=== PATIENT | female | born 1940 | race Caucasian/White ===

== ENCOUNTER → 2016-11-24 | Outpatient (CLI) | payer MEDICARE ==
[~2016-11-24] MED LIST: /ESOM40CA; BENZ100C5 PO; COUM7.5T PO; CYAN25TA PO; HYDR25TA6; LISI20TA PO; LISI20TA5; NEXI1CAP4 PO; PERCOCET PO; PRAV20TA2 PO; PRAVASTATIN; PRAVASTATIN PO; PREMPRO2.5 PO; TYLE650T30 PO; VICO5TAB; VITA100037 PO; VITMTA PO
--- NOTE | 2016-11-24 19:54 | REPMRS ---
Patient History The patient states she has not had a clinical breast exam in over a year. Patient is postmenopausal. Family history of ovarian cancer in mother at age 57 and ovarian cancer in 2 maternal aunts under age 50. Digital Woman Screen Mammo: November 24, 2016 - Exam #: [id number] Bilateral CC and MLO view(s) were taken. Technologist: Octavia Trevizo, Technologist Prior study comparison: June 04, 2014, digital woman screen mammo performed at [facility]. April 19, 2013, digital woman screen mammo performed at [facility]. February 17, 2012, digital woman screen mammo performed at [facility]. FINDINGS: There are scattered fibroglandular densities. There has been no change in the appearance of the mammogram from the prior studies. There is a mild amount of scattered fibroglandular density which is fairly symmetric. There is no interval development of dominant mass, architectural distortion, or clustered microcalcification suggestive of malignancy. ASSESSMENT: BI-RADS/ACR category 1 mammogram. Negative. Recommendation Routine screening mammogram in 1 year (for women over age 40). This mammogram was interpreted with the aid of an FDA-approved computer-aided dectection system. Electronically Signed By: Javier Gatica MD 11/24/161952
--- NOTE | 2016-11-25 10:29 | DEXA ---
AP SPINE L1 - L4 1.334 1.1 2.6 LT FEMUR TOTAL 0.945 -0.5 1.1 RT FEMUR TOTAL 0.922 -0.7 1.0 TOTAL BODY TOTAL OTHER DUAL FEMUR FRAX* ASSESSMENT Risk factors: Secondary osteoporosis (premature menopause). 10 year probability of fracture Major osteoporotic fracture 12.0 % Hip fracture 2.6 % COMMENTS: Normal bone densitometry of the spine. There is low bone density of the hips. FOLLOW-UP: Recommendation for the next bone density exam: 2 years. RUSS
== END ==
LOC: M WHC 10:57
PROVIDERS: ATTEND Nurse Practitioner Adult Health
DX: Z12.31 Encounter for screening mammogram for malignant neoplasm of breast (principal); M85.9 Disorder of bone density and structure, unspecified
CPT/HCPCS: 77080; G0202

== ENCOUNTER 2017-03-27 15:59 | Emergency (ER) | payer MEDICARE ==
[~2017-03-27] VITALS: Ht 157.5 cm; Wt 71.6 kg
[~2017-03-27 15:59] MED LIST changes: -VITA100037 PO; +VITA100067 PO
[2017-03-27 16:29] LABS: BASO % 0.5 % (0.0-1.0); EOS # 0.3 K/mm3 (0.0-0.50); EOS % 3.3 % (0.0-3.0); LARGE UNSTAINED CELL # 0.1 K/mm3 (0.0-0.4); LARGE UNSTAINED CELL % 0.6 % (0.0-4.0); LYMPH # 1.2 K/mm3 (1.5-4.5); LYMPH % 11.3 % (24.0-44.0); MEAN CORPUSCULAR HEMOGLOBIN 31.5 pg (27.0-33.0); MEAN CORPUSCULAR HGB CONC 33.2 g/dl (32.0-36.5); MONO # 0.3 K/mm3 (0.0-0.8); MONO % 2.6 % (0.0-5.0); NEUTROPHILS % 81.8 % (36.0-66.0); PLATELET COUNT, AUTOMATED 341 k/mm3 (150-450); RED CELL DISTRIBUTION WIDTH 14.9 % (11.5-14.5); WHITE BLOOD COUNT 9.7 K/mm3 (4.0-10.0)
[2017-03-27 16:42] LABS: INR 1.52
[2017-03-27 16:50] LABS: ALBUMIN 2.7 GM/DL (3.2-5.2); ALBUMIN/GLOBULIN RATIO 0.69 (1.00-1.93); ALKALINE PHOSPHATASE 853 U/L (45-117); ALT/SGPT 231 U/L (12-78); ANION GAP 12 MEQ/L (8-16); AST/SGOT 318 U/L (15-37); BILIRUBIN,DIRECT 15.6 MG/DL (0.0-0.2); BLOOD UREA NITROGEN 10 MG/DL (7-18); CALCIUM LEVEL 9.7 MG/DL (8.8-10.2); CARBON DIOXIDE LEVEL 26 MEQ/L (21-32); CHLORIDE LEVEL 97 MEQ/L (98-107); CREATININE FOR GFR 0.61 MG/DL (0.55-1.02); GLOMERULAR FILTRATION RATE > 60.0 (>39); GLUCOSE, FASTING 103 MG/DL (83-110); SODIUM LEVEL 135 MEQ/L (136-145); TOTAL PROTEIN 6.6 GM/DL (6.4-8.2)
[2017-03-27 16:53] LABS: BILIRUBIN,TOTAL 21.3 MG/DL (0.2-1.0)
[2017-03-27] MEDS ORDERED: ISOVUE-370 76% 100ML VIAL (Q9967) As Ordered ONE (18:12)
--- NOTE | 2017-03-27 18:14 | ECGEPIP ---
Stationary ECG Study [facility] - ED Test Date: 2017-03-27 Pat Name: ZOHRA NAYAK Department: Room: - Gender: F [place] Tonger: seb : 1940 Requested By: ASHLEY ROBIN Order Number: [id number] Reading MD: Justin Schumacher Measurements Intervals Drift Rate: 82 P: 80 LA: 152 QRS: -2 QRSD: 89 T: 1 QT: 392 QTc: 459 Interpretive Statements SINUS RHYTHM WITH OCCASIONAL VENTRICULAR PREMATURE COMPLEXES WITH OCCASIONAL SUPRAVENTRICULAR PREMATURE COMPLEXES NSTTW ABNORMALITIES SIMILAR TO 07/19/15 Electronically Signed On 03-27-2017 18:14:39 EDT by Justin Schumacher
--- NOTE | 2017-03-27 19:00 | REPUSA ---
CLINICAL HISTORY: Rule out obstructive CBD. TECHNIQUE: Realtime sonographic images were obtained in multiple projections. COMMENTS: The liver is heterogeneous without evidence of mass or defect. There is intra and extrahepatic bilia ry ductal dilatation. The common bile duct [id number] mm. The gallbladder is distended containing a small amount of sludge. The gallbladder wall thickness is 2 mm. Negative sonographic Gonzalez's sign. There is no abdominal ascites. The pancreas is not well visualized due to bowel gas. The pancreas head contains a hyperechoic mass area measuring 4.3 x 3.6 x 3.7 cm. The right kidney measures 9.1 x 4.9 x 4.2 cm, free of hydronephro sis. No free fluid is seen. IMPRESSION: 1. Heterogeneous liver. 2. Distended gallbladder containing small amount of sludge. 3. There is intra and extrahepatic biliary ductal dilatation. 4. The pancreas head contains a hyperechoic mass area measuring 4.3 x 3.6 x 3.7 cm.
[2017-03-27 19:26] LABS: METHADONE URINE NEGATIVE (NEGATIVE)
[2017-03-27] MEDS ORDERED: cefTRIAXone SOD 1 GM in D5W MINI-BAG PLUS 50 ML IV ONE (19:30)
--- NOTE | 2017-03-27 19:50 | REPUSA ---
CLINICAL HISTORY: Pancreatic mass. COMPARISON: Correlation is made with abdominal ultrasound from the same date. TECHNIQUE: Multiple axial, coronal, sagittal CT images were obtained through the abdomen after admini stration of intravenous contrast material. Oral contrast was not administered. FINDINGS: The liver is enlarged measuring 18.5 cm. No definite evidence of hepatic mass. There is severe intr a- and extra hepatic biliary duct dilatation present. The common bile duct measures up to 18 mm. Th ere are multiple calcified splenic granulomata present. The spleen is normal in size. The gallblad lauren is moderately distended. Multiple small calcified stones are present in the dependent portion of the gallbladder. There is a 3.5 x 2.5 cm hyperdense mass noted occupying a portion of the pancreati c head and uncinate prcess producing obstruction. There is no evidence of adrenal mass. Both kidneys demonstrate prompt and equal nephrograms. The ki dneys are normal in size, shape and configuration. There is no evidence of renal mass. There is no hydroureter or hydronephrosis. There is no evidence of abdominal ascites or lymphadenopathy. The uterus and ovaries appear to be only partially seen. The pelvis is not fully visualized. There is large ventral abdominal hernia containing non-obstructed loops of small and large bowel. Th e hernia neck measures approximately 8 cm. Scattered findings of diverticulosis are seen. There is no evidence of appendicitis. There is no bowel wall thickening. There is an anastomosis not ed in the rectosigmoid with no evidence for bowel obstruction. Images of the lung bases show no evidence of pleural or parenchymal mass. There are no pleural effus ions. IMPRESSION: 1. The liver is enlarged measuring 18.5 cm. No definite evidence of hepatic mass. There is severe intra- and extra hepatic biliary duct dilatation present. 2. 3.5 x 2.5 cm hyperdense mass noted occupying a portion of the pancreatic head and uncinate prcess producing obstruction. 3. The gallbladder is moderately distended. Multiple small calcified stones are present in the depe ndent portion of the gallbladder. 4. Large ventral abdominal hernia containing non-obstructed loops of small and large bowel. Thank you for your kind referral of this patient. We appreciate the opportunity to participate in thi s patient's care.
[2017-03-27 20:22] VITALS: BP 143/67
--- NOTE | 2017-03-28 06:43 | REP ---
AP PORTABLE CHEST: 03/27/2017. Clinical history: Syncope, near-syncope. Comparison: 12/02/2014, 01/20/2014 chest x-ray. CT 07/19/2015. Findings: Slight elevation right diaphragm again seen. No definite effusion, infiltrate, atelectasis or mass. The heart, mediastinal and hilar contours are normal. Some slightly hyperdense nodules or granulomatous nodes at the right hilum as on CT. The aorta is mildly tortuous but normal for age. Airway intact. No cardiomegaly or edema. Impression: 1. No acute cardiopulmonary change. Stable chest. 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 Signed by Raad Tran MD 03/28/2017 07:56 A
== END 2017-03-27 20:28 | disposition short-term general hospital (02) ==
LOC: EDBD 15:59 → M ED 15:59
DX: K86.89 Other specified diseases of pancreas (principal); K81.9 Cholecystitis, unspecified; N39.0 Urinary tract infection, site not specified; I10 Essential (primary) hypertension; R16.0 Hepatomegaly, not elsewhere classified; K40.90 Unilateral inguinal hernia, without obstruction or gangrene, not specified as recurrent; Z79.899 Other long term (current) drug therapy; Z88.8 Allergy status to other drugs, medicaments and biological substances
CPT/HCPCS: 71010; 74160; 76705; 80048; 80076; 80307; 81001; 82140; 82550; 82553; 82948; 83690; 84443; 84484; 85025; 85610; 86705; 86709; 86803; 87340; 93005; 93041; 94760; 96365; 99285; G0463; G0480; J0696; Q9967

== ENCOUNTER → 2017-04-21 | Outpatient (REF) | payer MEDICARE | LOC: M LAB REF 15:17 | PROVIDERS: ATTEND Nurse Practitioner Adult Health | DX: N39.0 Urinary tract infection, site not specified (principal) ==